=== PATIENT | female | born 1990 | race African-American/Black ===

== ENCOUNTER 2017-07-09 12:20 | Inpatient (IN) ==
[2017-07-09] MEDS ORDERED: MEPERIDINE 50 MG/1 ML VIAL IV PRN (12:58)
[2017-07-09] MEDS ORDERED: DINOPROSTONE 10 MG VAG.INSERT VAG ONE (12:58)
[2017-07-09] MEDS ORDERED: ONDANSETRON 4 MG/2 ML VIAL IV PRN (12:58)
[2017-07-09] MEDS ORDERED: LACTATED RINGERS 1,000 ML IV SCH (13:00)
[2017-07-09 13:24] LABS: Basophils % 0.2 % (0.0-0.8); Eosinophils # 0.1 10*3/uL (0.0-0.87); Eosinophils % 0.6 % (0.00-10.9); Hemoglobin 12.6 GM/DL (12.0-16.0); Immature Granulocytes % 0.4 %; Immature Granulocytes Absolute 0.05 #; Lymphocytes # 2.7 10*3/uL (1.4-4.0); Mean Corpuscular HGB Conc 32.3 GM/DL (32-36); Mean Corpuscular Hemoglobin 29 PG (27-34); Mean Corpuscular Volume 88.4 FL (87-102); Mean Platelet Volume 10.9 FL (9.6-12.0); Monocytes # 0.7 10*3/uL (0.11-0.8); Monocytes % 6.4 % (1.7-12.7); Neutrophils # 8.1 10*3/uL (1.4-7.4); Neutrophils % 69.4 % (38.7-73.9); Platelet Count 212 T/CUMM (130-400); Red Blood Count 4.41 MC/CUMM (3.8-5.5); White Blood Count 11.6 T/CUMM (4-12)
[2017-07-09] MEDS: BUTORPHANOL 2 MG/ML VIAL IV PRN (20:56)
[2017-07-10] MEDS: BUTORPHANOL 2 MG/ML VIAL IV PRN ×2 (01:07→05:48)
[2017-07-10] MEDS ORDERED: OXYTOCIN/LR 20 UNIT/1,000 ML BAG IV ONE (02:45)
[2017-07-10] MEDS ORDERED: OXYTOCIN/D5LR 20 UNIT/1,000 ML PREMIX IV SCH (03:00)
[2017-07-10] MEDS ORDERED: LIDOCAINE 1% 50 ML VIAL ONE (06:14)
[2017-07-10] MEDS ORDERED: BISACODYL 10 MG SUPP RECTAL PRN (12:21)
[2017-07-10] MEDS ORDERED: MAGNESIUM HYDROXIDE SUSP 30 ML UDCUP PO PRN (12:21)
[2017-07-10] MEDS ORDERED: ACETAMINOPHEN 325 MG TABLET PO PRN (12:21)
[2017-07-10] MEDS: MULTIVITAMIN (PRENATAL) TABLET PO SCH (12:21)
[2017-07-10] MEDS: DOCUSATE SODIUM 100 MG CAPSULE PO SCH ×2 (12:21→20:25)
[2017-07-10] MEDS ORDERED: IBUPROFEN 800 MG TABLET PO PRN (12:21)
[2017-07-11] MEDS: LACTATED RINGERS 1,000 ML IV SCH ×2 (03:27→21:53)
[2017-07-11 03:52] LABS: Basophils % 0.2 % (0.0-0.8); Eosinophils # 0.1 10*3/uL (0.0-0.87); Eosinophils % 0.4 % (0.00-10.9); Hematocrit 35.3 VOL% (35.7-47.0); Hemoglobin 11.8 GM/DL (12.0-16.0); Immature Granulocytes % 0.4 %; Immature Granulocytes Absolute 0.06 #; Lymphocytes # 2.9 10*3/uL (1.4-4.0); Lymphocytes % 20.3 % (21.3-54.2); Mean Corpuscular HGB Conc 33.4 GM/DL (32-36); Mean Corpuscular Hemoglobin 29 PG (27-34); Mean Corpuscular Volume 86.3 FL (87-102); Mean Platelet Volume 10.9 FL (9.6-12.0); Monocytes # 0.7 10*3/uL (0.11-0.8); Neutrophils # 10.5 10*3/uL (1.4-7.4); Neutrophils % 73.7 % (38.7-73.9); Platelet Count 188 T/CUMM (130-400); Red Blood Count 4.09 MC/CUMM (3.8-5.5); Red Cell Distribution Width 14.3 % (9.3-17.3); White Blood Count 14.3 T/CUMM (4-12)
[2017-07-11] MEDS: MULTIVITAMIN (PRENATAL) TABLET PO SCH (08:30)
[2017-07-11] MEDS: DOCUSATE SODIUM 100 MG CAPSULE PO SCH ×2 (08:30→20:51)
[2017-07-12 09:09] VITALS: BP 140/87
[2017-07-12 09:15] LABS: Basophils % 0.2 % (0.0-0.8); Eosinophils # 0.1 10*3/uL (0.0-0.87); Eosinophils % 0.4 % (0.00-10.9); Hemoglobin 11.3 GM/DL (12.0-16.0); Immature Granulocytes % 0.3 %; Immature Granulocytes Absolute 0.03 #; Lymphocytes # 2.8 10*3/uL (1.4-4.0); Mean Corpuscular HGB Conc 32.3 GM/DL (32-36); Mean Corpuscular Hemoglobin 29 PG (27-34); Mean Corpuscular Volume 89.5 FL (87-102); Mean Platelet Volume 10.9 FL (9.6-12.0); Monocytes # 0.6 10*3/uL (0.11-0.8); Monocytes % 5.5 % (1.7-12.7); Neutrophils # 8.2 10*3/uL (1.4-7.4); Neutrophils % 69.6 % (38.7-73.9); Platelet Count 184 T/CUMM (130-400); Red Blood Count 3.91 MC/CUMM (3.8-5.5); White Blood Count 11.7 T/CUMM (4-12)
[2017-07-12 09:52] LABS: Albumin 2.7 G/DL (3.4-5.0); Bilirubin,Total 0.6 MG/DL (0.2-1.0); Calcium 8.7 MG/DL (8.5-10.1); Osmolality,Calculated 273.7 MOS/KG (273-304); Potassium 3.9 MMOL/L (3.5-5.1); Total Protein 6.3 G/DL (6.4-8.3)
[2017-07-12] MEDS: DOCUSATE SODIUM 100 MG CAPSULE PO SCH (09:59)
[2017-07-12] MEDS: MULTIVITAMIN (PRENATAL) TABLET PO SCH (10:01)
== END 2017-07-12 14:25 | disposition home or self-care (01) | DRG 560 ==
LOC: N.LDOUT 12:20 → N.LD 12:32 → N.OB 07-10 12:21
PROVIDERS: ADMIT Obstetrics & Gynecology; ATTEND Obstetrics & Gynecology

== ENCOUNTER 2018-07-25 05:14 | Inpatient (IN) ==
[2018-07-25] MEDS ORDERED: BUTORPHANOL 2 MG/ML VIAL IV PRN (05:26)
[2018-07-25] MEDS ORDERED: MEPERIDINE 50 MG/1 ML VIAL IM PRN (05:26)
[2018-07-25] MEDS ORDERED: ONDANSETRON 4 MG/2 ML VIAL IV PRN ×2 (05:26→17:11)
[2018-07-25] MEDS ORDERED: OXYTOCIN/LR 20 UNIT/1,000 ML BAG IV SCH (05:30)
[2018-07-25 05:53] LABS: Basophils % 0.2 % (0.0-0.8); Eosinophils # 0.1 10*3/uL (0.0-0.87); Eosinophils % 0.7 % (0.00-10.9); Hematocrit 36.4 VOL% (35.7-47.0); Hemoglobin 11.3 GM/DL (12.0-16.0); Immature Granulocytes % 0.3 %; Immature Granulocytes Absolute 0.03 #; Lymphocytes # 2.2 10*3/uL (1.4-4.0); Lymphocytes % 21.5 % (21.3-54.2); Mean Corpuscular Hemoglobin 28 PG (27-34); Mean Corpuscular Volume 90.8 FL (87-102); Mean Platelet Volume 10.3 FL (9.6-12.0); Monocytes # 0.7 10*3/uL (0.11-0.8); Monocytes % 6.7 % (1.7-12.7); Neutrophils # 7.1 10*3/uL (1.4-7.4); Neutrophils % 70.6 % (38.7-73.9); Platelet Count 203 T/CUMM (130-400); Red Blood Count 4.01 MC/CUMM (3.8-5.5); Red Cell Distribution Width 14.1 % (9.3-17.3)
[2018-07-25] MEDS: LACTATED RINGERS 1,000 ML IV SCH ×2 (05:58→06:50)
[2018-07-25 06:14] LABS: Alanine Aminotransferase 19 U/L (13-56); Albumin 2.6 G/DL (3.4-5.0); Alkaline Phosphatase 216 U/L (45-117); Aspartate Amino Transferase 13 U/L (0-37); Bilirubin,Total < 0.39 MG/DL (0.2-1.0); Blood Urea Nitrogen 11 MG/DL (7-18); Calcium 8.3 MG/DL (8.5-10.1); Glucose 84 MG/DL (74-106); Osmolality,Calculated 272.7 MOS/KG (273-304); Potassium 3.9 MMOL/L (3.5-5.1); Sodium 138 MMOL/L (136-145); Total Protein 6.8 G/DL (6.4-8.3)
[2018-07-25] MEDS ORDERED: AMPICILLIN INJ 2,000 MG in SODIUM CHLORIDE 0.9% 100 ML IV ONE (07:00)
[2018-07-25 09:24] LABS: Apearance,Urine Slightly Hazy (Clear); Bacteria,Urine Occasional /HPF (Few); Bilirubin,Urine Negative (Negative); Blood, Urine Negative (Negative); Calcium Oxalate Crystals,Urine Few /HPF (Few); Glucose,Urine (UA) Negative (Negative); Ketones,Urine Negative (Negative); Mucus,Urine Occasional /LPF (Occasional); Nitrite,Urine Negative (Negative); Protein,Urine Negative; RBC,Urine 1 /HPF (0-4); Squamous Epithelial Cell,Urine Occasional /HPF (0-10); Urine Color Yellow (Yellow); Urine Specific Gravity 1.026 (1.001-1.035); WBC,Urine 1 /HPF (0-6)
[2018-07-25] MEDS ORDERED: AMPICILLIN INJ 1,000 MG in SODIUM CHLORIDE 0.9% 100 ML IV SCH (11:00)
[2018-07-25] MEDS ORDERED: TRANEXAMIC ACID 1,000 MG/10 ML VIAL ONE (12:50)
[2018-07-25] MEDS ORDERED: miSOPROStol 200 MCG TABLET ONE (12:50)
[2018-07-25] MEDS ORDERED: OXYTOCIN/LR 20 UNIT/1,000 ML BAG IV ONE (12:50)
[2018-07-25] MEDS ORDERED: CARBOPROST TROMETHAMINE 250 MCG/ML AMP IM ONE (12:51)
[2018-07-25] MEDS ORDERED: METHYLERGONOVINE 0.2 MG/1 ML AMP ONE (12:51)
[2018-07-25] MEDS ORDERED: LIDOCAINE 1% 50 ML VIAL ONE (12:52)
[2018-07-25] MEDS ORDERED: ePHEDrine 50 MG/ML AMP IV PRN (13:07)
[2018-07-25] MEDS ORDERED: hydrOXYzine HCL 25 MG/1 ML VIAL IM PRN (13:07)
[2018-07-25] MEDS ORDERED: PROMETHAZINE 25 MG/1 ML VIAL IM ONE (13:07)
[2018-07-25] MEDS ORDERED: CITRIC ACID/SODIUM CITRATE 30 ML UDCUP PO ONE (13:07)
[2018-07-25] MEDS ORDERED: diphenhydrAMINE 50 MG/1 ML VIAL IV PRN (13:07)
[2018-07-25] MEDS ORDERED: FAMOTIDINE 20 MG/2 ML VIAL IV ONE (13:07)
[2018-07-25] MEDS ORDERED: NALOXONE 0.4 MG/ML VIAL IV PRN (13:07)
[2018-07-25] MEDS ORDERED: fentaNYL 2 MCG/ROPIV 0.2% EPID 100 ML EPIDURAL SCH (13:30)
[2018-07-25] MEDS ORDERED: ACETAMINOPHEN 325 MG TABLET PO PRN (17:11)
[2018-07-25] MEDS ORDERED: BISACODYL 10 MG SUPP RECTAL PRN (17:11)
[2018-07-25] MEDS ORDERED: MAGNESIUM HYDROXIDE SUSP 30 ML UDCUP PO PRN (17:11)
[2018-07-25] MEDS ORDERED: LACTATED RINGERS 1,000 ML IV SCH (17:30)
[2018-07-25] MEDS: IBUPROFEN 800 MG TABLET PO PRN (18:15)
[2018-07-25] MEDS: DOCUSATE SODIUM 100 MG CAPSULE PO SCH (21:58)
[2018-07-26 06:12] LABS: Basophils % 0.2 % (0.0-0.8); Eosinophils % 0.3 % (0.00-10.9); Hematocrit 26.3 VOL% (35.7-47.0); Immature Granulocytes % 0.4 %; Immature Granulocytes Absolute 0.06 #; Lymphocytes # 2.2 10*3/uL (1.4-4.0); Lymphocytes % 16.6 % (21.3-54.2); Mean Corpuscular HGB Conc 31.6 GM/DL (32-36); Mean Corpuscular Hemoglobin 28 PG (27-34); Mean Corpuscular Volume 89.2 FL (87-102); Monocytes # 0.6 10*3/uL (0.11-0.8); Monocytes % 4.2 % (1.7-12.7); Neutrophils # 10.6 10*3/uL (1.4-7.4); Neutrophils % 78.3 % (38.7-73.9); Red Cell Distribution Width 14.2 % (9.3-17.3)
[2018-07-26 06:43] LABS: Hemoglobin 8.3 GM/DL (12.0-16.0); Platelet Count 161 T/CUMM (130-400); Red Blood Count 2.95 MC/CUMM (3.8-5.5); White Blood Count 13.5 T/CUMM (4-12)
[2018-07-26] MEDS: MULTIVITAMIN (PRENATAL) TABLET PO SCH (09:31)
[2018-07-26] MEDS: DOCUSATE SODIUM 100 MG CAPSULE PO SCH ×2 (09:32→20:07)
[2018-07-26] MEDS: IRON (CARBONYL)/VIT C/B12/FA TABLET PO SCH (10:09)
[2018-07-26] MEDS: IBUPROFEN 800 MG TABLET PO PRN (20:06)
[2018-07-27] MEDS: IBUPROFEN 800 MG TABLET PO PRN (06:08)
[2018-07-27 07:22] VITALS: BP 124/72
[2018-07-27] MEDS: IRON (CARBONYL)/VIT C/B12/FA TABLET PO SCH (09:16)
[2018-07-27] MEDS: DOCUSATE SODIUM 100 MG CAPSULE PO SCH (09:17)
[2018-07-27] MEDS: MULTIVITAMIN (PRENATAL) TABLET PO SCH (09:18)
== END 2018-07-27 13:15 | disposition home or self-care (01) | DRG 560 ==
LOC: N.LDOUT 05:14 → N.LD 05:17 → N.OB 17:45
PROVIDERS: ADMIT Obstetrics & Gynecology; ATTEND Obstetrics & Gynecology